=== PATIENT | female | born 1990 | race Two or more races ===

== ENCOUNTER 2021-02-09 12:00 | Inpatient (IN) | payer OTHER ==
[~2021-02-09] VITALS: Ht 152.4 cm; Wt 78.0 kg
[2021-02-25] MEDS ORDERED: PRENATAL CAPLE1 EAC1 PO (09:48)
== END 2021-02-27 12:13 | disposition home or self-care (01) | DRG 807 ==
LOC: LDR 02-25 07:27 → OB/GYN 02-25 07:27
PROVIDERS: ADMIT Specialist; ATTEND Specialist
PROC: 10E0XZZ Delivery of Products of Conception, External Approach (ICD-10-PCS; principal; 2021-02-25)
PROC: 10907ZC Drainage of Amniotic Fluid, Therapeutic from Products of Conception, Via Natural or Artificial Opening (ICD-10-PCS; 2021-02-25)
PROC: 0W8NXZZ Division of Female Perineum, External Approach (ICD-10-PCS; 2021-02-25)
PROC: 4A1HXFZ Monitoring of Products of Conception, Cardiac Rhythm, External Approach (ICD-10-PCS; 2021-02-25)
PROC: BY4FZZZ Ultrasonography of Third Trimester, Single Fetus (ICD-10-PCS; 2021-02-25)
DX: O62.2 Other uterine inertia (principal); Z37.0 Single live birth; Z3A.39 39 weeks gestation of pregnancy; Z20.822 Contact with and (suspected) exposure to COVID-19

== ENCOUNTER 2021-02-25 01:24 | Outpatient (CLI) | payer OTHER ==
[2021-02-25] MEDS ORDERED: PRENATAL CAPLE1 EAC1 PO (09:48)
== END 2021-02-25 07:29 | disposition still patient (30) ==
LOC: OBS/DEL 01:24
PROVIDERS: ATTEND Specialist
DX: O47.1 False labor at or after 37 completed weeks of gestation (principal); Z3A.39 39 weeks gestation of pregnancy

== ENCOUNTER 2023-03-21 05:22 | Inpatient (IN) | payer OTHER ==
[~2023-03-21] VITALS: Ht 162.6 cm; Wt 81.6 kg
[~2023-03-21 05:22] MED LIST: PRENATAL CAPLE1 EAC1 PO
== END 2023-03-23 15:23 | disposition home or self-care (01) | DRG 798 ==
LOC: LDR 05:22 → OB/GYN 05:22 → LDR 03-27 11:40
PROVIDERS: ADMIT Specialist; ATTEND Specialist
PROC: 10E0XZZ Delivery of Products of Conception, External Approach (ICD-10-PCS; principal; 2023-03-21)
PROC: 0HQ9XZZ Repair Perineum Skin, External Approach (ICD-10-PCS; 2023-03-21)
PROC: 4A1HXCZ Monitoring of Products of Conception, Cardiac Rate, External Approach (ICD-10-PCS; 2023-03-21)
PROC: 0UB70ZZ Excision of Bilateral Fallopian Tubes, Open Approach (ICD-10-PCS; 2023-03-22)
DX: O70.0 First degree perineal laceration during delivery (principal); Z37.0 Single live birth; Z3A.39 39 weeks gestation of pregnancy; Z30.2 Encounter for sterilization; Z20.822 Contact with and (suspected) exposure to COVID-19